=== PATIENT | female | born 1995 | race Caucasian/White ===

== ENCOUNTER → 2017-01-11 | Outpatient (REF) | payer OTHER | LOC: M LAB REF 12:23 | PROVIDERS: ATTEND Physician Assistant | DX: N39.0 Urinary tract infection, site not specified (principal) ==

== ENCOUNTER → 2017-03-23 | Outpatient (REF) | payer OTHER | LOC: M SFHCWAGY 11:45 | DX: Z12.4 Encounter for screening for malignant neoplasm of cervix (principal); Z11.3 Encounter for screening for infections with a predominantly sexual mode of transmission | CPT/HCPCS: 87591 ==

== ENCOUNTER 2018-01-01 03:02 | Day surgery (SDC) | payer SELFPAY, OTHER ==
[2018-01-01] MEDS: LR 1,000 ML IV ×4 (03:00→17:30)
[~2018-01-01 03:02] MED LIST: ACETAMINOPHEN TAB 650MG DOSE (2X325MG) PO; MORPHINE 4 MG/ML 1ML VIAL/SYRINGE (J2270) As Ordered; ONDANSETRON 4MG/2ML VIAL (J2405) IV; UNASYN 3 GM VIAL As Ordered
[2018-01-01] MEDS: AMPICILLIN SOD/SULBACTAM SOD 3 GM in D5W MINI-BAG PLUS 100 ML IV ×4 (03:07→20:56)
[2018-01-01] MEDS: MORPHINE 4 MG/ML 1ML VIAL/SYRINGE (J2270) IV ×2 (03:09→08:28)
[2018-01-01] MEDS ORDERED: LIDOCAINE 2% INJ 100 MG/5 ML SDV (FOR ANES.) As Ordered (15:35)
[2018-01-01] MEDS ORDERED: ROCURONIUM BROMIDE 50 MG/5 ML VIAL As Ordered (15:35)
[2018-01-01] MEDS ORDERED: PROPOFOL 200 MG/20 ML VIAL As Ordered (15:35)
[2018-01-01] MEDS ORDERED: fentaNYL 250 MCG/5 ML INJECTION (J3010) As Ordered (15:36)
[2018-01-01] MEDS ORDERED: MIDAZOLAM INJ 2 MG/2 ML VIAL (J2250) As Ordered (15:36)
[2018-01-01] MEDS ORDERED: GLYCOPYRROLATE INJ 0.2 MG/ML 2 ML VIAL As Ordered ×2 (16:36)
[2018-01-01] MEDS ORDERED: KETOROLAC 60 MG/2 ML VIAL (J1885) As Ordered (16:36)
[2018-01-01] MEDS ORDERED: ONDANSETRON 4MG/2ML VIAL (J2405) As Ordered ×2 (16:36→17:32)
[2018-01-01] MEDS ORDERED: NEOSTIGMINE 10 MG/10 ML VIAL (J2710) As Ordered ×2 (16:36)
[2018-01-01] MEDS ORDERED: dexameTHASONE 4 MG/ML 1ML VIAL (J1100) As Ordered ×2 (16:36)
[2018-01-01] MEDS ORDERED: METOCLOPRAMIDE INJ 10MG/2ML VIAL (J2765) As Ordered (16:37)
[2018-01-01] MEDS: BUPIVACAINE HCL 0.25% 30 ML VIAL As Ordered (16:58)
[2018-01-01] MEDS: LIDOCAINE 1% SDV INJ 30 ML VIAL As Ordered (16:58)
[2018-01-01] MEDS ORDERED: fentaNYL 100 MCG/2 ML INJECTION (J3010) IV (17:30)
[2018-01-01] MEDS ORDERED: PERCOCET 5MG/325MG TAB As Ordered ×2 (17:32→18:00)
[2018-01-01] MEDS: PERCOCET 5MG/325MG TAB PO ×3 (17:38→22:00)
[2018-01-01] MEDS: ONDANSETRON 4MG/2ML VIAL (J2405) IV (17:42)
[2018-01-01 20:58] LABS: ANION GAP 5 MEQ/L (8-16); BLOOD UREA NITROGEN 6 MG/DL (7-18); CALCIUM LEVEL 8.2 MG/DL (8.5-10.1); CARBON DIOXIDE LEVEL 28 MEQ/L (21-32); CHLORIDE LEVEL 106 MEQ/L (98-107); CREATININE FOR GFR 0.69 MG/DL (0.55-1.30); GLOMERULAR FILTRATION RATE > 60.0 (>60); GLUCOSE, FASTING 106 MG/DL (70-100); POTASSIUM SERUM 3.5 MEQ/L (3.5-5.1); SODIUM LEVEL 139 MEQ/L (136-145)
[2018-01-02] MEDS: LR 1,000 ML IV ×2 (01:27→09:27)
[2018-01-02] MEDS: AMPICILLIN SOD/SULBACTAM SOD 3 GM in D5W MINI-BAG PLUS 100 ML IV ×3 (02:58→14:00)
[2018-01-02 07:11] LABS: BASO % 0.1 % (0.0-1.0); HEMATOCRIT 36.5 % (36.0-47.0); HEMOGLOBIN 12.3 g/dl (12.0-15.5); IMMATURE GRANULOCYTE % 0.6 % (0-3.0); LYMPH # 0.8 10^3/uL (1.5-6.5); LYMPH % 7.3 % (24.0-44.0); MEAN CORPUSCULAR HEMOGLOBIN 29.5 pg (27.0-33.0); MEAN CORPUSCULAR HGB CONC 33.7 g/dl (32.0-36.5); MEAN CORPUSCULAR VOLUME 87.5 fl (80.0-96.0); MONO # 0.5 10^3/uL (0.0-0.8); NEUTROPHILS # 9.4 10^3/uL (1.8-7.7); PLATELET COUNT, AUTOMATED 291 10^3/uL (150-450); RED BLOOD COUNT 4.17 10^6/uL (4.00-5.40); RED CELL DISTRIBUTION WIDTH 11.6 % (11.5-14.5); WHITE BLOOD COUNT 10.8 10^3/uL (4.0-10.0)
[2018-01-02] MEDS: PERCOCET 5MG/325MG TAB PO ×2 (09:14→17:07)
[2018-01-02] MEDS: MORPHINE 4 MG/ML 1ML VIAL/SYRINGE (J2270) IV (12:28)
== END 2018-01-02 17:12 | disposition home or self-care (01) ==
LOC: M SDC 01-02 17:12 → M PED 03:05
DX: K35.80 Unspecified acute appendicitis (principal); R01.1 Cardiac murmur, unspecified; F12.90 Cannabis use, unspecified, uncomplicated
CPT/HCPCS: 44970

== ENCOUNTER → 2019-03-28 | Outpatient (REF) | payer BC ==
[~2019-03-28] MED LIST changes: -ACETAMINOPHEN TAB 650MG DOSE (2X325MG) PO; -MORPHINE 4 MG/ML 1ML VIAL/SYRINGE (J2270) As Ordered; -ONDANSETRON 4MG/2ML VIAL (J2405) IV; +PERCOCET PO; -UNASYN 3 GM VIAL As Ordered
== END ==
LOC: M SFHCCAPE 14:01
PROVIDERS: ATTEND Physician Assistant
DX: J22 Unspecified acute lower respiratory infection (principal); J02.9 Acute pharyngitis, unspecified

== ENCOUNTER 2019-05-07 14:24 | Emergency (ER) | payer BC, SELFPAY ==
[~2019-05-07] VITALS: Ht 160 cm; Wt 65.0 kg
[2019-05-07 15:22] LABS: BASO # 0.1 10^3/uL (0.0-0.2); EOS # 0.3 10^3/uL (0.0-0.5); EOS % 3.1 % (0.0-3.0); HEMATOCRIT 41.2 % (36.0-47.0); HEMOGLOBIN 13.2 g/dl (12.0-15.5); LYMPH % 21.2 % (24.0-44.0); MEAN CORPUSCULAR HEMOGLOBIN 29.1 pg (27.0-33.0); MEAN CORPUSCULAR VOLUME 90.9 fl (80.0-96.0); MONO # 0.6 10^3/uL (0.0-0.8); MONO % 6.4 % (0.0-5.0); NEUTROPHILS # 6.4 10^3/uL (1.5-8.5); PLATELET COUNT, AUTOMATED 325 10^3/uL (150-450); RED BLOOD COUNT 4.53 10^6/uL (4.00-5.40); WHITE BLOOD COUNT 9.5 10^3/uL (4.0-10.0)
[2019-05-07 15:40] LABS: HCG, SERUM QUALITATIVE NEGATIVE (NEGATIVE)
[2019-05-07 15:49] LABS: ALBUMIN 4.3 GM/DL (3.2-5.2); ALT/SGPT 18 U/L (12-78); BILIRUBIN,DIRECT 0.1 MG/DL (0.0-0.2); BILIRUBIN,TOTAL 0.3 MG/DL (0.2-1.0); BLOOD UREA NITROGEN 12 MG/DL (7-18); CALCIUM LEVEL 8.9 MG/DL (8.5-10.1); CARBON DIOXIDE LEVEL 30 MEQ/L (21-32); CHLORIDE LEVEL 105 MEQ/L (98-107); CREATININE FOR GFR 0.71 MG/DL (0.55-1.30); GLOMERULAR FILTRATION RATE > 60.0 (>60); GLUCOSE, FASTING 94 MG/DL (70-100); LIPASE 131 U/L (73-393); POTASSIUM SERUM 4.5 MEQ/L (3.5-5.1); SODIUM LEVEL 140 MEQ/L (136-145)
--- NOTE | 2019-05-07 18:39 | REPVR ---
PROCEDURE INFORMATION: Exam: CT Abdomen And Pelvis Without Contrast Exam date and time: 05/07/2019 5:43 PM Age: 24 years old Clinical indication: Abdominal pain; Flank; Right; Additional info: Right flank pain, R/O kidney stone TECHNIQUE: Imaging protocol: Computed tomography of the abdomen and pelvis without contrast. Radiation optimization: All CT scans at this facility use at least one of these dose optimization techniques: automated exposure control; mA and/or kV adjustment per patient size (includes targeted exams where dose is matched to clinical indication); or iterative reconstruction. COMPARISON: No relevant prior studies available. FINDINGS: Liver: Normal. No mass. Gallbladder and bile ducts: Normal. No calcified stones. No ductal dilation. Pancreas: Normal. No ductal dilation. Spleen: Normal. No splenomegaly. Adrenals: Normal. No mass. Kidneys and ureters: There are no renal calculi are obvious hydronephrosis. Stomach and bowel: Bowel is poorly evaluated on this noncontrast study but there is no evidence of obstruction. Appendix: The appendix is not identified. Intraperitoneal space: Small volume of free fluid in the cul-de-sac. Vasculature: Unremarkable. No abdominal aortic aneurysm. Lymph nodes: Unremarkable. No enlarged lymph nodes. Bladder: Unremarkable as visualized. Reproductive: Uterus and adnexae are poorly visualized. Bones/joints: Pectus excavatum. Soft tissues: Unremarkable. IMPRESSION: Limited examination due to lack of intravenous contrast and patient's lack of internal body fat. No evidence of urinary tract or bowel obstruction. There is a small amount of free fluid in the pelvis. The uterus and ovaries are poorly visualized. The appendix is not identified. Electronically signed by: Erika Jarvis On 05/07/2019 18:39:33 PM
[2019-05-07] MEDS ORDERED: CYCLOBENZAPRINE 10 MG TAB PO ONE (19:00)
[2019-05-07] MEDS ORDERED: KETOROLAC 60 MG/2 ML VIAL (J1885) IM ONE (19:00)
[2019-05-07 19:38] VITALS: BP 145/84
== END 2019-05-07 19:40 | disposition home or self-care (01) ==
LOC: M ED 14:24
DX: R10.9 Unspecified abdominal pain (principal); M54.5 Low back pain; F17.210 Nicotine dependence, cigarettes, uncomplicated
CPT/HCPCS: 36415; 74176; 80048; 80076; 81001; 83690; 84703; 85025; 96372; 99283; J1885

== ENCOUNTER 2022-05-27 11:40 | Emergency (ER) | payer MEDICAID, SELFPAY ==
[~2022-05-27] VITALS: Ht 157.5 cm; Wt 65.2 kg
[2022-05-27 12:21] LABS: BASO # 0.1 10^3/uL (0.0-0.2); BASO % 0.8 % (0.0-1.0); EOS # 0.2 10^3/uL (0.0-0.5); EOS % 2.1 % (0.0-3.0); HEMATOCRIT 41.2 % (36.0-47.0); HEMOGLOBIN 13.4 g/dl (12.0-15.5); LYMPH # 1.6 10^3/uL (1.5-5.0); LYMPH % 21.9 % (24.0-44.0); MEAN CORPUSCULAR HEMOGLOBIN 29.4 pg (27.0-33.0); MEAN CORPUSCULAR HGB CONC 32.5 g/dl (32.0-36.5); MEAN CORPUSCULAR VOLUME 90.4 fl (80.0-96.0); MONO # 0.6 10^3/uL (0.0-0.8); MONO % 7.6 % (2.0-8.0); NEUTROPHILS # 4.9 10^3/uL (1.5-8.5); NEUTROPHILS % 67.3 % (36.0-66.0); PLATELET COUNT, AUTOMATED 387 10^3/uL (150-450); RED BLOOD COUNT 4.56 10^6/uL (4.00-5.40); WHITE BLOOD COUNT 7.2 10^3/uL (4.0-10.0)
[2022-05-27 12:47] LABS: LIPASE 32 U/L (12-53)
[2022-05-27 12:50] LABS: ALKALINE PHOSPHATASE 41 U/L (46-116); ALT/SGPT 19 U/L (7.0-40); AST/SGOT 19 U/L (<34); BILIRUBIN,DIRECT 0.1 MG/DL (<0.4); BILIRUBIN,TOTAL 0.4 MG/DL (0.3-1.2); BLOOD UREA NITROGEN 10 MG/DL (9-23); CALCIUM LEVEL 8.9 MG/DL (8.5-10.1); CARBON DIOXIDE LEVEL 30 MMOL/L (20-31); CHLORIDE LEVEL 102 MMOL/L (98-107); CREATININE FOR GFR 0.62 MG/DL (0.55-1.30); GLOMERULAR FILTRATION RATE > 60.0 (>60); GLUCOSE, FASTING 92 MG/DL (60-100); POTASSIUM SERUM 4.2 MMOL/L (3.5-5.1); SODIUM LEVEL 139 MMOL/L (136-145); TOTAL PROTEIN 6.7 G/DL (5.7-8.2)
[2022-05-27 14:05] LABS: URINE PREG TEST NEGATIVE (NEGATIVE)
[2022-05-27] MEDS ORDERED: KETOROLAC 60MG 2ML VIAL IM ONE (15:10)
[2022-05-27 17:15] VITALS: BP 118/76
== END 2022-05-27 17:25 | disposition home or self-care (01) ==
LOC: M ED 11:40
DX: R19.00 Intra-abdominal and pelvic swelling, mass and lump, unspecified site (principal); K59.00 Constipation, unspecified
CPT/HCPCS: 74018; 76830; 76856; 80048; 80076; 81001; 83690; 84703; 85025; 93976; 96372; 99283; J1885

== ENCOUNTER → 2023-12-11 | Outpatient (REF) | payer OTHER ==
[2023-12-11 16:45] LABS: APPEARANCE, URINE HAZY (CLEAR); BACTERIA, URINE AUTO 1+ (NEGATIVE); BILIRUBIN, URINE AUTO NEGATIVE (NEGATIVE); BLOOD, URINE BLOOD NEGATIVE (NEGATIVE); COLOR, URINE YELLOW (YELLOW); GLUCOSE, URINE (UA) AUTO NEGATIVE (NEGATIVE); KETONE, URINE AUTO TRACE mg/dL (NEGATIVE); LEUKOCYTE ESTERASE, URINE AUTO NEGATIVE (NEGATIVE); MUCUS, URINE SMALL (NEGATIVE); NITRITE, URINE AUTO NEGATIVE (NEGATIVE); PROTEIN, URINE AUTO NEGATIVE (NEGATIVE); RBC, URINE AUTO 4 /HPF (0-3); SPECIFIC GRAVITY URINE AUTO 1.027 (1.002-1.035); SQUAMOUS EPITHELIAL CELL UR AU 5 /HPF (0-6); UROBILINOGEN, URINE AUTO 0.2 mg/dL (0.0-2.0); WBC, URINE AUTO 1 /HPF (0-3)
== END ==
LOC: M LAB REF 16:21
PROVIDERS: ATTEND Physician Assistant Medical
DX: N39.0 Urinary tract infection, site not specified (principal)